=== PATIENT | female | born 1965 | race Caucasian/White ===

== ENCOUNTER 2018-09-22 11:10 | Emergency (ER) | payer OTHER ==
[2018-09-22 11:16] VITALS: BP 149/79; PULSE 87; TEMP 98.1; BMI 37.3
--- NOTE | 2018-09-22 11:44 | PDOC ---
History of Present Illness - General Chief Complaint: Pain, Acute Stated Complaint: LOWER BACK PAIN Time Seen by Provider: 09/22/18 11:21 History Source: Patient Exam Limitations: No Limitations Past History - Past Medical History Allergies/Adverse Reactions: Allergies Allergy/AdvReac Type Severity Reaction Status Date / Time Penicillins Allergy Intermediate Rash Verified 09/22/18 11:11 Home Medications: Ambulatory Orders Levothyroxine Sodium [Synthroid] 200 mcg PO DAILY tablet 04/30/14 Lisinopril [Zestril] 10 mg PO DAILY 09/22/18 Anemia: No Asthma: No Cancer: Yes (THYROID 2001) Cardiac Disorders: No CVA: No COPD: No CHF: No Dementia: No Diabetes: No GI Disorders: No Disorders: No HTN: Yes Hypercholesterolemia: No Liver Disease: No Seizures: No Thyroid Disease: Yes - Surgical History Abdominal Surgery: No Appendectomy: No Cardiac Surgery: No Cholecystectomy: No Lung Surgery: No Neurologic Surgery: No Orthopedic Surgery: No - Suicide/Smoking/Psychosocial Hx Smoking History: Never smoked Have you smoked in the past 12 months: No Hx Alcohol Use: No Drug/Substance Use Hx: No Substance Use Type: Alcohol Hx Substance Use Treatment: No *Physical Exam - Vital Signs Last Vital Signs Temp Pulse Resp BP Pulse Ox 98.1 F 87 18 149/79 98 09/22/18 11:15 09/22/18 11:15 09/22/18 11:15 09/22/18 11:15 09/22/18 11:15 - Physical Exam General Appearance: No: Apparent Distress Respiratory/Chest: positive: Lungs Clear, Normal Breath Sounds. negative: Respiratory Distress Cardiovascular: positive: Regular Rhythm, Regular Rate, S1, S2. negative: Murmur Female Pelvic Exam: positive: adnexal tenderness (+mild R adnexal tenderness) Gastrointestinal/Abdominal: positive: Normal Bowel Sounds, Soft. negative: Tender, Distended, Guarding, Rebound Musculoskeletal: negative: CVA Tenderness Integumentary: positive: Normal Color Neurologic: positive: Alert, Normal Mood/Affect Moderate Sedation - Procedure Monitoring Vital Signs: Procedure Monitoring Vital Signs Temperature 98.1 F 09/22/18 11:15 Pulse Rate 87 09/22/18 11:15 Respiratory Rate 18 09/22/18 11:15 Blood Pressure 149/79 09/22/18 11:15 O2 Sat by Pulse Oximetry (%) 98 09/22/18 11:15 ED Treatment Course - LABORATORY CBC & Chemistry Diagram: 09/22/18 11:47 09/22/18 11:47 Medical Decision Making - Medical Decision Making 53 y/o F hx of thyroid CA 2001 s/p thyroidectomy (in remission), HTN, tubal ligation 2006, L ovarian cystectomy and endometrial ablation for endometriosis 2012 (has not been menstruating since then) presents with sharp, constant RLQ pain x 2 days, not relieved despite taking Motrin 800 mg. Denies fever, chills, sob, cp, n/v/d, unusual vaginal discharge, urinary complaints. Patient was recently treated for UTI last month. Denies having pain in this location before Consider ovarian cyst vs appendicitis vs ovarian torsion (though patient appears very comfortable) vs diverticulitis (less likely with no diarrhea or fever) Plan: Labs, pelvic ultrasound 09/22/18 11:44 Pelvic US shows L ovarian cyst, no evidence of torsion, no other acute findings Will get CT A/P to r/o appendicitis or other acute pathology 09/22/18 14:13 CT A/P shows no acute findings other than the L ovarian cyst noted on ultrasound and uterine fibroids No evidence of appendicitis Copy of results given to patient and advised f/u with [employer] Stable for dc 09/22/18 16:13 *DC/Admit/Observation/Transfer Diagnosis at time of Disposition: Pelvic pain Ovarian cyst Qualifiers: Laterality: left Qualified Code(s): N83.202 - Unspecified ovarian cyst, left side - Discharge Dispostion Disposition: HOME Condition at time of disposition: Improved Decision to Admit order: No - Referrals Referrals: Aristides Donald MD [Primary Care Provider] - 2 Days - Patient Instructions Printed Discharge Instructions: DI for Ovarian Cyst Additional Instructions: Thank you for choosing [facility]. It was a pleasure taking care of you. Your ultrasound and CT scan showed evidence of left ovarian cyst and fibroids Follow-up with your [employer] AIDE for further care Take Motrin (also known as Ibuprofen) 600 mg every 6 hours as needed for pain Return to the Emergency Department if your symptoms worsen or persist or have other concerning symptoms. - Post Discharge Activity
[2018-09-22 11:59] LABS: BASO % 0.7 % (0-2.0); EOS % 0.9 % (0-4.5); HEMOGLOBIN 13.3 GM/dL (10.7-15.3); LYMPH % 17.8 % (8-40); MCH 29.6 pg (25.7-33.7); MCHC 34.9 g/dl (32.0-36.0); MEAN CELL VOLUME 84.7 fl (80-96); MONO % 4.6 % (3.8-10.2); PLATELET COUNT 248 K/MM3 (134-434); RBC 4.49 M/mm3 (3.60-5.2); RDW 13.8 % (11.6-15.6); WHITE BLOOD COUNT 9.4 K/mm3 (4.0-10.0)
[2018-09-22 12:21] LABS: ANION GAP 7 MMOL/L (8-16); BLOOD UREA NITROGEN 11 mg/dL (7-18); CALCIUM 8.9 mg/dL (8.5-10.1); CHLORIDE 108 mmol/L (98-107); CO2 26 mmol/L (21-32); CREATININE 0.9 mg/dL (0.55-1.3); GLUCOSE,RANDOM 112 mg/dL (74-106); POTASSIUM 3.9 mmol/L (3.5-5.1); SODIUM 141 mmol/L (136-145)
[2018-09-22 14:44] LABS: HCG,QUALITATIVE URINE Negative
[2018-09-22] MEDS ORDERED: morphine SULFATE 4 MG/ML VIAL ONE (14:50)
[2018-09-22 15:06] LABS: URINE APPEARANCE CLEAR; URINE BILIRUBIN NEGATIVE (<2.0 mg/dL); URINE COLOR STRAW; URINE GLUCOSE (UA) NEGATIVE (NEGATIVE); URINE KETONE NEGATIVE (NEGATIVE); URINE LEUK ESTERASE NEGATIVE (NEGATIVE); URINE NITRITE NEGATIVE (NEGATIVE); URINE PROTEIN NEGATIVE (NEGATIVE); URINE UROBILINOGEN NEGATIVE mg/dL (0.2-1.0)
[2018-09-22 15:35] LABS: EPI CELLS RARE /HPF (FEW); URINE MUCUS RARE
[2018-09-22] MEDS: morphine CARPU-JECT 4 MG/1 ML DISP.SYRIN IVPUSH ONE ×2 (15:36→15:41)
== END 2018-09-22 16:29 | disposition home or self-care (01) ==
LOC: JER 11:10
DX: D25.9 Leiomyoma of uterus, unspecified (principal); N83.202 Unspecified ovarian cyst, left side; I10 Essential (primary) hypertension; E89.0 Postprocedural hypothyroidism; Z85.850 Personal history of malignant neoplasm of thyroid
CPT/HCPCS: 36415; 74177-TC; 76830-TC; 80048; 81003; 81015; 84703; 85025; 99283-25

== ENCOUNTER 2024-08-21 04:51 | Day surgery (SDC) | payer BC, OTHER ==
[2024-08-19 12:42] VITALS: BMI 37.5
[2024-08-21 08:57] VITALS: TEMP 98.3
[2024-08-21 09:37] VITALS: BP 121/87; PULSE 82; RESP 16
== END 2024-08-21 09:37 | disposition home or self-care (01) ==
LOC: JASU-ENDO 04:51
PROVIDERS: ATTEND Internal Medicine Gastroenterology
PROC: 0DJD8ZZ Inspection of Lower Intestinal Tract, Via Natural or Artificial Opening Endoscopic (ICD-10-PCS; principal; 2024-08-21 08:00)
DX: K64.8 Other hemorrhoids (principal); Z86.0100 Personal history of colon polyps, unspecified; I10 Essential (primary) hypertension

== ENCOUNTER 2024-10-30 06:43 | Day surgery (SDC) | payer BC, OTHER ==
[2024-10-28 14:12] VITALS: BMI 38.2
[2024-10-30 12:10] VITALS: RESP 16
[2024-10-30 12:11] VITALS: BP 136/91; PULSE 87; TEMP 98
== END 2024-10-30 12:12 | disposition home or self-care (01) ==
LOC: JASU-ENDO 06:43
PROVIDERS: ATTEND Internal Medicine Gastroenterology
PROC: 0DB68ZX Excision of Stomach, Via Natural or Artificial Opening Endoscopic, Diagnostic (ICD-10-PCS; 2024-10-30)
PROC: 0DB48ZX Excision of Esophagogastric Junction, Via Natural or Artificial Opening Endoscopic, Diagnostic (ICD-10-PCS; principal; 2024-10-30 10:30)
DX: K44.9 Diaphragmatic hernia without obstruction or gangrene (principal); K21.00 Gastro-esophageal reflux disease with esophagitis, without bleeding; K29.70 Gastritis, unspecified, without bleeding
CPT/HCPCS: 88305-TC; 88342-TC